=== PATIENT | male | born 1980 | race Caucasian/White ===

== ENCOUNTER → 2021-06-25 | Outpatient (CLI) | payer OTHER ==
[~2021-06-25] MED LIST: ACETAMINOPHEN325 M1 PO; AUGMENTIN 875875 M1 PO; CLEOCIN HCL150 MG PO; HYDROCODONE-APA1 TA1 PO; MOBIC7.5 M1 PO; NOHOMEMEDICATIONS; NORCO 5-325 TA1 EACH PO; PREDNISONE50 MG PO
== END ==
LOC: M.RAD 12:34
DX: M79.642 Pain in left hand (principal)